=== PATIENT | male | born 1990 | race Two or more races ===

== ENCOUNTER 2017-08-23 23:50 | Emergency (ER) | payer SELFPAY ==
[~2017-08-23] VITALS: Ht 172.7 cm; Wt 70.3 kg
[2017-08-23] MEDS ORDERED: NKM (23:59)
[2017-08-24] VITALS: BP 118/73
[2017-08-24] MEDS ORDERED: HYDROCORTISONE28 G2 TP (00:05)
[2017-08-24 00:18] VITALS: BP 118/73
--- NOTE | 2017-08-24 00:19 | Emergency Room Report ---
History of Present Illness General Chief Complaint: Skin Rash/Abscess Source: Patient Present Illness HPI The patient is a 26-year-old male who presented after increased skin rash to his the belt line. Patient had onset of symptoms gradual onset. The rash been present for several days. He denies any fever. The patient reports having generalized itchiness. He denies any other complaints this time. Allergies: Coded Allergies: No Known Allergies (Unverified , 08/23/17) Patient History Past Medical History: see triage record Reviewed Nursing Documentation: PMH: Agreed; PSxH: Agreed Nursing Documentation-PMH Past Medical History: No History, Except For History Of Psychiatric Problem: Yes Review of Systems All Other Systems: negative except mentioned in HPI Physical Exam Vital Signs Date Time Temp Pulse Resp B/P (MAP) Pulse Ox O2 Delivery O2 Flow Rate FiO2 08/23/17 23:54 97.6 65 16 115/74 95 Room Air 97.5 General Appearance: well appearing, no apparent distress, alert, GCS 15 Head: normocephalic, atraumatic ENT: hearing grossly normal, normal voice Neck: full range of motion, supple Respiratory: no respiratory distress, speaking full sentences Cardiovascular #1: normal peripheral pulses, regular rate, rhythm, no edema Gastrointestinal: normal inspection, normal bowel sounds, non tender Musculoskeletal: normal inspection, no calf tenderness Neurologic: normal gait Psychiatric: mood/affect normal Skin: rash - excoriated area near the beltline without erythema or induration Medical Decision Making Diagnostic Impression: Primary Impression: Contact dermatitis ER Course Patient presented for skin rash. Differential diagnoses included wasn't limited to contact dermatitis, cellulitis, tinea cruris among others. Patient has a benign exam and does not appear to require any further imaging or laboratory testing at this time. The patient appears to have a contact allergy. The patient was advised to use hydrocortisone cream. The patient is advised to follow up with primary care doctor in 1-2 days. Patient is advised to return if any worsening condition or if any changes in status that are concerning. This report is dictated with [employer] ed transporter software which may occasionally lead to discrepancies related to use of this software. Last Vital Signs Date Time Temp Pulse Resp B/P (MAP) Pulse Ox O2 Delivery O2 Flow Rate FiO2 08/23/17 23:54 97.6 65 16 115/74 95 Room Air 97.5 Status: improved Disposition: HOME, SELF-CARE Condition: Stable Scripts Hydrocortisone Acetate 1% Onit (HYDROCORTISONE 1% OINT) Y Oint 28 GM TP DAILY, #30 GM Prov: Balaji Begum 08/24/17 Patient Instructions: Balaji Odonnell August 24, 2017 00:19
== END 2017-08-24 01:30 | disposition home or self-care (01) ==
LOC: EMR 08-24 01:06
DX: L25.9 Unspecified contact dermatitis, unspecified cause (principal)
CPT/HCPCS: 99283